=== PATIENT | male | born 2000 | race African-American/Black ===

== ENCOUNTER 2022-07-17 15:41 | Emergency (ER) | payer OTHER, SELFPAY ==
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
[2022-07-17 15:45] VITALS: BMI 35.8
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
[2022-07-17 15:50] VITALS: BP 134/91; PULSE 108; RESP 14; TEMP 37.2; O2SAT 100
[2022-07-17 17:14] VITALS: BP 121/85; PULSE 102; RESP 18; O2SAT 100
--- NOTE | 2022-07-17 17:18 | PC.NURSE ---
Patient evaluated and discharged by provider prior to nursing assessment.
== END 2022-07-17 17:25 | disposition home or self-care (01) ==
PROVIDERS: Emergency Provider Emergency Medicine
DX: S83.91XA Sprain of unspecified site of right knee, initial encounter (principal); V89.2XXA Person injured in unspecified motor-vehicle accident, traffic, initial encounter; Y99.0 Civilian activity done for income or pay
CPT/HCPCS: 73562; 99281; 99283